=== PATIENT | female | born 1930 | race Caucasian/White ===

== ENCOUNTER 2018-05-12 10:50 | Emergency (ER) | payer MEDICARE, OTHER ==
[2018-05-12] MEDS ORDERED: METHYLPREDNISOLONE SOD SUCC 40MG/ML 1ML ONE (14:18)
[2018-05-12] MEDS ORDERED: KETOROLAC TROMETHAMINE 30MG/ML ONE (14:18)
== END 2018-05-12 14:40 | disposition home or self-care (01) ==
LOC: EDH 10:50
DX: S70.01XA Contusion of right hip, initial encounter (principal); Z96.649 Presence of unspecified artificial hip joint; Z87.891 Personal history of nicotine dependence; W18.39XA Other fall on same level, initial encounter; Y93.01 Activity, walking, marching and hiking; Y92.89 Other specified places as the place of occurrence of the external cause; Y99.8 Other external cause status
CPT/HCPCS: 73502; 96372 ×2; 99284; J1885; J2920

== ENCOUNTER → 2018-06-02 | Outpatient (CLI) | payer MEDICARE, OTHER | END | disposition home or self-care (01) | LOC: RAH 09:30 | PROVIDERS: ATTEND Family Medicine | DX: Z01.812 Encounter for preprocedural laboratory examination (principal); M16.11 Unilateral primary osteoarthritis, right hip | CPT/HCPCS: 71045 ==

== ENCOUNTER 2019-06-21 09:25 | Observation (INO) | payer MEDICARE, OTHER ==
[~2019-06-21] VITALS: Ht 171.4 cm; Wt 81.5 kg
[~2019-06-21 09:25] MED LIST: BENZ-17 PO; CEFD300C3 PO
[2019-06-21] MEDS ORDERED: NITROGLYCERIN 0.4 MG SL TAB SL ONE (09:57)
[2019-06-21 10:01] LABS: BASOPHILS % (AUTO) 0.6 % (0.0-5.0); EOSINOPHILS % (AUTO) 0.5 % (0.0-8.0); HEMATOCRIT 41.4 % (36-48); LYMPHOCYTES % (AUTO) 10.8 % (21.0-51.0); MEAN CORPUSCULAR HGB CONC 33.7 g/dL (32.0-36.0); MONOCYTES % (AUTO) 6.2 % (3.0-13.0); NEUTROPHILS % (AUTO) 81.9 % (40.0-77.0); NUCLEATED RED BLOOD CELLS 0.1 % (0.0-0.19); PLATELET COUNT (AUTO) 200 K/uL (130-400)
[2019-06-21] MEDS ORDERED: NITROGLYCERIN 1GM/1 INCH PACKET TD ONE (10:11)
[2019-06-21 10:12] LABS: CREATININE 0.9 mg/dL (0.5-1.5); POTASSIUM 4.1 mmol/L (3.5-5.1)
[2019-06-21 10:17] LABS: ALBUMIN 4.1 g/dL (3.5-5.0); BILIRUBIN,TOTAL 0.7 mg/dL (0.2-1.0); TOTAL PROTEIN, SERUM 7.2 g/dL (6.0-8.3)
[2019-06-21] MEDS ORDERED: ASPIRIN 325 MG TABLET ONE (11:06)
[2019-06-21] MEDS ORDERED: ACETAMINOPHEN 325 MG TAB PO PRN (12:00)
[2019-06-21] MEDS ORDERED: ONDANSETRON HCL 4 MG/2 ML VIAL IV PRN (12:00)
[2019-06-21] MEDS ORDERED: MORPHINE SULFATE 4 MG/1ML SYG IV PRN (12:00)
[2019-06-21] MEDS ORDERED: LACTULOSE 20 GM/30 ML UDCUP PO PRN (12:00)
[2019-06-21] MEDS ORDERED: ACETAMINOPHEN-CODEINE 300/30MG TAB PO PRN (12:00)
[2019-06-21] MEDS: METOPROLOL TARTRATE 25 MG TAB PO SCH ×2 (13:00→20:45)
--- NOTE | 2019-06-21 13:30 | NUR ---
ARRIVAL TO FLOOR PT IS AAOX3 DENIES CP DENIES SOB DENIES NV NO COMPLAINTS AT THIS TIME. ARRIVED WITH ORDERS, FRIENDS ARE AT BEDSIDE, TELE PACK APPLIED TO PATIENT. CALL LIGHT WITHIN REACH.
[2019-06-21 13:44] VITALS: BP 125/76
[2019-06-21] MEDS: NITROGLYCERIN 1GM/1 INCH PACKET TD SCH ×2 (14:05→22:35)
[2019-06-21 16:00] VITALS: BP 142/66
--- NOTE | 2019-06-21 17:30 | NUR ---
STATUS AAOX3 DENIES CP DENIES SOB DENIES NV RESTING IN BED. CALL LIGHT WITHIN REACH.
[2019-06-21 19:43] VITALS: BP 138/73
[2019-06-21] MEDS: FAMOTIDINE 20MG TAB 20 MG TAB PO SCH (20:45)
[2019-06-21] MEDS ORDERED: DIPHENHYDRAMINE HCL 25 MG CAPSULE PO SCH (21:30)
[2019-06-21 23:14] VITALS: BP 137/69
[2019-06-22 03:29] VITALS: BP 126/59
[2019-06-22 06:19] LABS: BASOPHILS % (AUTO) 0.6 % (0.0-5.0); EOSINOPHILS % (AUTO) 4.8 % (0.0-8.0); HEMATOCRIT 36.1 % (36-48); LYMPHOCYTES % (AUTO) 21.8 % (21.0-51.0); MEAN CORPUSCULAR HGB CONC 33.6 g/dL (32.0-36.0); MEAN CORPUSCULAR VOLUME 92.3 fL (79-99); MONOCYTES % (AUTO) 11.8 % (3.0-13.0); PLATELET COUNT (AUTO) 190 K/uL (130-400); RED BLOOD CELL COUNT(AUTO) 3.91 MIL/uL (4.00-5.50); RED CELL DISTRIBUTION WIDTH 13.9 % (11.0-15.5); WHITE BLOOD COUNT (AUTO) 5.4 K/uL (4.8-10.8)
[2019-06-22] MEDS: NITROGLYCERIN 1GM/1 INCH PACKET TD SCH (06:24)
[2019-06-22 06:49] LABS: CREATININE 0.8 mg/dL (0.5-1.5)
[2019-06-22 07:44] VITALS: BP 145/63
--- NOTE | 2019-06-22 07:45 | NUR ---
AM ASSESSMENT PT SITTING IN CHAIR, WATCHING TV. A/O X 3. NO SOB. NO DISTRESS NOTED. DENIES CHEST PAIN OR DISCOMFORT. DENIES PALPITATIONS. TELE: SR. DENIES N/V AND/ OR DIARRHEA. UP W/ASSISTANCE. JOSÉ @ BEDSIDE. INSTRUCTED TO CALL FOR ASSISTANCE. CALL ANGIE W/IN REACH.
[2019-06-22] MEDS: FAMOTIDINE 20MG TAB 20 MG TAB PO SCH (08:29)
[2019-06-22] MEDS: METOPROLOL TARTRATE 25 MG TAB PO SCH (08:29)
--- NOTE | 2019-06-22 08:30 | NUR ---
STATUS TELE TINO REMOVED @ THIS TIME. PT TO BE DISCHARGED HOME TODAY.
[2019-06-22] MEDS ORDERED: ENOXAPARIN SODIUM 40 MG/0.4 ML SYRINGE SQ SCH (09:00)
--- NOTE | 2019-06-22 09:50 | NUR ---
DISCHARGE VERBAL & WRITTEN DISCHARGE INSTRUCTIONS REVIEWED & GIVEN TO PT. QUESTIONS ENCOURAGED & CLARIFIED. PROPER CARE & MGT OF CHEST PAIN/PALPITATIONS REVIEWED. PT TO CONTINUE ASA @ HOME. PT TO F/U W/[facility]. IV DISCONTINUED. PT TO GATHER PERSONAL BELONGINGS. WILL NOTIFY STAFF WHEN FRIENDS ARRIVE TO HOSPITAL TO TAKE PT HOME.
--- NOTE | 2019-06-22 09:57 | NUR ---
CM NOTES ADVISED BY AT 0800 THAT PT IS GOING HOME- NO TRIGGERS TO CM, NO CONCERNS VOICED. DETAILED CM ASSESSMENT DEFERRED Addendum: 06/22/19 at 1004 by CHANDLER FAUST RN CM Amended: Links added.
--- NOTE | 2019-06-22 11:05 | NUR ---
DISCHARGE FRIENDS HERE TO TAKE PT HOME. PT TAKEN TO PRIVATE VEHICLE VIA WC BY Abby BUCKLEY PCP. NO DISTRESS NOTED.
== END 2019-06-22 11:05 | disposition home or self-care (01) ==
LOC: EDH 09:25 → EDHIP 11:53 → INTOOBSV 11:53 → 4DH 12:58
PROVIDERS: ADMIT Internal Medicine; ATTEND Internal Medicine
DX: M94.0 Chondrocostal junction syndrome [Tietze] (principal); K21.9 Gastro-esophageal reflux disease without esophagitis; I20.9 Angina pectoris, unspecified; R00.2 Palpitations; R55 Syncope and collapse; Z96.649 Presence of unspecified artificial hip joint; Z96.659 Presence of unspecified artificial knee joint
CPT/HCPCS: 36415 ×2; 71045; 80048; 80053; 82550; 83690; 84484 ×4; 85025 ×2; 93005 ×4; 93880; 99284; 99285; G0378 ×23; Q0163; J1650

== ENCOUNTER 2020-03-13 08:29 | Inpatient (IN) | payer MEDICARE, OTHER ==
[~2020-03-13] VITALS: Ht 170.2 cm; Wt 77.1 kg
[2020-03-13 09:16] LABS: BASOPHILS % (AUTO) 0.3 % (0.0-5.0); EOSINOPHILS % (AUTO) 1.1 % (0.0-8.0); HEMATOCRIT 34.7 % (36-48); LYMPHOCYTES % (AUTO) 10.7 % (21.0-51.0); MEAN CORPUSCULAR HEMOGLOBIN 30.5 pg (27.0-33.0); MEAN CORPUSCULAR HGB CONC 32.3 g/dL (32.0-36.0); MEAN CORPUSCULAR VOLUME 94.6 fL (79-99); NEUTROPHILS % (AUTO) 80.5 % (40.0-77.0); PLATELET COUNT (AUTO) 227 K/uL (130-400); RED BLOOD CELL COUNT(AUTO) 3.67 MIL/uL (4.00-5.50); RED CELL DISTRIBUTION WIDTH 13.8 % (11.0-15.5); WHITE BLOOD COUNT (AUTO) 9.6 K/uL (4.8-10.8)
[2020-03-13 09:29] LABS: INR 1.08 (0.85-1.15); PARTIAL THROMBOPLASTIN TIME 27.1 SEC (26.3-35.5); PROTHROMBIN TIME 11.6 SEC (9.6-11.6)
[2020-03-13 09:30] LABS: CREATININE 0.9 mg/dL (0.5-1.5); POTASSIUM 4.7 mmol/L (3.5-5.1)
[2020-03-13 09:35] LABS: ALBUMIN 3.5 g/dL (3.5-5.0); BILIRUBIN,TOTAL 0.4 mg/dL (0.2-1.0); TOTAL PROTEIN, SERUM 6.2 g/dL (6.0-8.3)
[2020-03-13 09:54] LABS: B-TYPE NATRIURETIC PEPTIDE 137 pg/mL (0-100)
[2020-03-13 10:10] LABS: APPEARANCE,URINE Cloudy (CLEAR); BILIRUBIN,URINE Negative (NEGATIVE); COLOR,URINE Yellow (YELLOW); GLUCOSE, URINE (UA) Negative (NEGATIVE); KETONES,URINE Negative (NEGATIVE); LEUKOCYTE ESTERASE ,URINE Moderate (NEGATIVE); NITRATE,URINE Negative (NEGATIVE); OCCULT BLOOD,URINE Negative (NEGATIVE); PH,URINE 5.5 (5.0-8.0); PROTEIN,URINE Negative (NEGATIVE); UROBILINOGEN,URINE 0.2 mg/dL (0.2-1.0)
[2020-03-13 10:16] LABS: BACTERIA,URINE Rare /HPF (None Seen); RBC,URINE 0-1 /HPF (0-1); SQUAMOUS EPITHELIAL CELL,UR Moderate /HPF (0-2)
[2020-03-13] MEDS ORDERED: ONDANSETRON HCL 4 MG/2 ML VIAL IV PRN (10:45)
[2020-03-13] MEDS ORDERED: HYDRALAZINE HCL 20 MG/ML VIAL IV PRN (10:45)
[2020-03-13] MEDS ORDERED: LACTULOSE 20 GM/30 ML UDCUP PO PRN (10:45)
[2020-03-13 11:33] LABS: HEMOGLOBIN A1C 5.5 % (4.0-6.0)
[2020-03-13 12:22] VITALS: BP 124/49
[2020-03-13 12:22] LABS: CHOLESTEROL 131 mg/dL (<200); HDL CHOLESTEROL 64 mg/dL (35-85); LDL DIRECT 51 mg/dL (0-99); TRIGLYCERIDES 57 mg/dL (30-200)
[2020-03-13] MEDS: ACETAMINOPHEN 325 MG TAB PO PRN (12:59)
[2020-03-13] MEDS: SODIUM CHLORIDE 0.9% 1000ML 1,000 ML IV SCH (14:04)
[2020-03-13] MEDS ORDERED: PANTOPRAZOLE SODIUM 40 MG TABLET.DR PO SCH (14:15)
[2020-03-13 20:04] VITALS: BP 97/47
[2020-03-13] MEDS: TEMAZEPAM 7.5 MG CAPSULE PO PRN (21:27)
[2020-03-14 00:04] VITALS: BP 109/56
[2020-03-14 04:02] LABS: BASOPHILS % (AUTO) 0.3 % (0.0-5.0); EOSINOPHILS % (AUTO) 3.1 % (0.0-8.0); HEMATOCRIT 23.7 % (36-48); LYMPHOCYTES % (AUTO) 23.7 % (21.0-51.0); MEAN CORPUSCULAR HEMOGLOBIN 31.1 pg (27.0-33.0); MEAN CORPUSCULAR HGB CONC 33.8 g/dL (32.0-36.0); MEAN CORPUSCULAR VOLUME 92.2 fL (79-99); MONOCYTES % (AUTO) 8.4 % (3.0-13.0); NEUTROPHILS % (AUTO) 64.2 % (40.0-77.0); PLATELET COUNT (AUTO) 152 K/uL (130-400); RED BLOOD CELL COUNT(AUTO) 2.57 MIL/uL (4.00-5.50); RED CELL DISTRIBUTION WIDTH 14.2 % (11.0-15.5)
[2020-03-14 04:04] VITALS: BP_SYST 102; BP_SYST 123; BP_SYST 95; BP_DIAS 51; BP_DIAS 54; BP_DIAS 61
[2020-03-14 04:16] LABS: CREATININE 0.9 mg/dL (0.5-1.5); POTASSIUM 3.9 mmol/L (3.5-5.1)
[2020-03-14] MEDS: SODIUM CHLORIDE 0.9% 1000ML 1,000 ML IV SCH (04:39)
--- NOTE | 2020-03-14 06:44 | NUR ---
NOTE SPIRITUAL ADVISOR ASKED TO MOVE PATIENT TO ROOM 320, INFORMED PATIENT OF PLAN. LATIA VILLELA NP MAKING ROUNDS A THIS TIME. NOTIFIED OF MOVE AND HE SPOKE WITH PATIENT AND INFORMED HER OF PLAN TO CONSULT CARDIOLOGY. MOVED HER VIA WHEELCHAIR ALONG WITH HER BELONGINGS. ORIENTED HER TO HER NEW ROOM. CONTACTED HAND PATCHER TECH AND ALSO PATIENT'S DAUGHTER AND PROVIDED HER WITH NEW TELEPHONE NUMBER TO CALL PATIENT IN NEW ROOM AND NEW ORDERS OF CARDIOLOGY. ASKED HER IF PATIENT ALREADY SEES A CARDIOLOGIES, SHE SAYS THAT SHE DOES NOT.
[2020-03-14 07:30] VITALS: BP 121/55
[2020-03-14] MEDS ORDERED: PANTOPRAZOLE SODIUM 40 MG TABLET.DR PO SCH (09:00)
[2020-03-14] MEDS ORDERED: FAMOTIDINE 20MG TAB 20 MG TAB PO SCH (09:00)
[2020-03-14] MEDS ORDERED: ENOXAPARIN SODIUM 40 MG/0.4 ML SYRINGE SQ SCH ×2 (09:00)
[2020-03-14 11:00] VITALS: BP 120/52
[2020-03-14] MEDS: ACETAMINOPHEN 325 MG TAB PO PRN (12:40)
--- NOTE | 2020-03-14 13:57 | NUR ---
INP CM spoke to pt's daughter Awilda Thompson, discussed dc plans. Per daughter pt is independent prior to admission, live at home alone, daughter lives close by, daughter verbalized she is not the POA instead it's the son from [place] for any signatures needed. Pt has a cane, shower chair, uses [facility] in [place] for meds. Per daughter it's ok to call her for updates as she talks to brother if there's any changes in pt condition, but son will be the one to call in case nurse needs signatures. Feels safe to go back home, daughter able to assist with transportation and needs as necessary. DC plan to home once stable. CM to cont to follow up. Addendum: 03/14/20 at 1401 by REJI BUTLER LVN CM Amended: Links added.
[2020-03-14 16:00] VITALS: BP 159/77
[2020-03-14] MEDS ORDERED: PANTOPRAZOLE SODIUM 80 MG in SODIUM CHLORIDE 0.9% 100 ML IV SCH (16:30)
[2020-03-14 17:52] LABS: HEMATOCRIT 23.5 % (36-48)
[2020-03-14 18:18] LABS: % IRON SATURATION 13.6 % (22-44)
[2020-03-14] MEDS: TEMAZEPAM 7.5 MG CAPSULE PO PRN (20:14)
[2020-03-14 23:18] LABS: HEMATOCRIT 23.2 % (36-48)
[2020-03-15] VITALS (19 sets, daily range): BP systolic 87–152; BP diastolic 32–69
[2020-03-15] MEDS: SODIUM CHLORIDE 0.9% 1000ML 1,000 ML IV SCH ×2 (02:48→11:27)
[2020-03-15 04:37] LABS: BASOPHILS % (AUTO) 0.7 % (0.0-5.0); EOSINOPHILS % (AUTO) 2.7 % (0.0-8.0); HEMATOCRIT 21.4 % (36-48); LYMPHOCYTES % (AUTO) 19.4 % (21.0-51.0); MEAN CORPUSCULAR HEMOGLOBIN 31.2 pg (27.0-33.0); MEAN CORPUSCULAR HGB CONC 33.6 g/dL (32.0-36.0); MEAN CORPUSCULAR VOLUME 92.6 fL (79-99); MONOCYTES % (AUTO) 8.6 % (3.0-13.0); NEUTROPHILS % (AUTO) 68.1 % (40.0-77.0); PLATELET COUNT (AUTO) 167 K/uL (130-400); RED BLOOD CELL COUNT(AUTO) 2.31 MIL/uL (4.00-5.50); RED CELL DISTRIBUTION WIDTH 14.1 % (11.0-15.5); WHITE BLOOD COUNT (AUTO) 5.8 K/uL (4.8-10.8)
[2020-03-15 04:47] LABS: CREATININE 0.7 mg/dL (0.5-1.5); POTASSIUM 3.5 mmol/L (3.5-5.1)
[2020-03-15] MEDS ORDERED: PROPOFOL 10 MG/ML 20ML VIAL IV ONE (10:21)
[2020-03-15] MEDS ORDERED: PHENYLEPHRINE HCL 10 MG/ML 1ML VIAL IV ONE (10:32)
[2020-03-15] MEDS ORDERED: ALPRAZOLAM 0.25 MG TABLET ONE (13:04)
[2020-03-15] MEDS ORDERED: ALPRAZOLAM 0.25 MG TABLET PO ONE (14:00)
--- NOTE | 2020-03-15 15:33 | NUR ---
1524 patient signed IM Letter, I faxed IM Letter to [phone] and placed in chart under consent tab.
[2020-03-15] MEDS ORDERED: IOHEXOL 350 MG/ML 100ML INFUS..BTL IV ONE (17:47)
[2020-03-15] MEDS: TEMAZEPAM 7.5 MG CAPSULE PO PRN (20:13)
[2020-03-15] MEDS: ACETAMINOPHEN 325 MG TAB PO PRN (20:15)
--- NOTE | 2020-03-15 21:37 | NUR ---
received report from andrea aguilar nurse, assumed care, pt h&h 7.2, waiting for doctors order, will continue to monitor. head to toe assessment done, safety maintained. 24 cc done, will contue to monitor and provide quality nursing care.
--- NOTE | 2020-03-15 22:03 | NUR ---
contacted and spoke with contreras pump house technician, informed ms chairez pt h&h and also contacted rodrigue charge nurse also informed her pt situation. contacted and spoke with hospitalist lead python developer, spoke with Oj Sousa, informed her pt H&h, per andrea aguilar nurse had morning rounds and no new orders given just continue to monitor. Tania Sousa Track Service Worker, asked pt vs , pt vs wnl, asymptomatic, resting comfortably in bed, no active bleeding noted, pt did ct of head came back negative, doppler came back negative, Tania Sousa Np checked on ordered labs in the morning and ordered just to continue to monitor. torb and confirmed.
--- NOTE | 2020-03-15 23:04 | NUR ---
called, ff up with ct, given result ct (-), continue to monitor.
[2020-03-16] VITALS (7 sets, daily range): BP systolic 114–145; BP diastolic 41–67
[2020-03-16] MEDS: ACETAMINOPHEN 325 MG TAB PO PRN ×4 (02:37→21:20)
[2020-03-16] MEDS: SODIUM CHLORIDE 0.9% 1000ML 1,000 ML IV SCH ×2 (02:51→18:48)
[2020-03-16 05:55] LABS: BASOPHILS % (AUTO) 0.5 % (0.0-5.0); EOSINOPHILS % (AUTO) 2.6 % (0.0-8.0); HEMATOCRIT 21.4 % (36-48); LYMPHOCYTES % (AUTO) 20.7 % (21.0-51.0); MEAN CORPUSCULAR HEMOGLOBIN 30.7 pg (27.0-33.0); MEAN CORPUSCULAR HGB CONC 33.2 g/dL (32.0-36.0); MEAN CORPUSCULAR VOLUME 92.6 fL (79-99); MONOCYTES % (AUTO) 8.8 % (3.0-13.0); NEUTROPHILS % (AUTO) 66.9 % (40.0-77.0); PLATELET COUNT (AUTO) 179 K/uL (130-400); RED BLOOD CELL COUNT(AUTO) 2.31 MIL/uL (4.00-5.50); RED CELL DISTRIBUTION WIDTH 14.1 % (11.0-15.5); WHITE BLOOD COUNT (AUTO) 5.8 K/uL (4.8-10.8)
--- NOTE | 2020-03-16 06:12 | NUR ---
received report from andrea aguilar nurse, assumed care, shift assessment done, timed medication given see emar, pain medication given, pre and post pain assessment done, safety maintained.
[2020-03-16 06:14] LABS: CREATININE 0.7 mg/dL (0.5-1.5); POTASSIUM 3.5 mmol/L (3.5-5.1)
[2020-03-16] MEDS ORDERED: EPOETIN ALFA 10,000 UNIT/ML VIAL SQ SCH (11:00)
[2020-03-16] MEDS ORDERED: COMPOUND IV MISC 1 EACH IVSOLN MISC PRN (11:00)
[2020-03-16] MEDS: IRON SUCROSE COMPLEX 100 MG in SODIUM CHLORIDE 0.9% 50 ML IV SCH ×2 (14:00→21:10)
--- NOTE | 2020-03-16 19:29 | NUR ---
Pt discharged from GI; new orders entered. Contacted Hospitalist Nadia in regards to consulting with Dr. Ren for carotid stenosis results and Nadia stated she would contact Dr. Ren. This information was passed on in report.
[2020-03-16] MEDS: PANTOPRAZOLE SODIUM 40 MG TABLET.DR PO SCH (21:10)
[2020-03-16] MEDS: TEMAZEPAM 7.5 MG CAPSULE PO PRN (21:19)
[2020-03-17 03:36] VITALS: BP 121/55
[2020-03-17 04:30] LABS: BASOPHILS % (AUTO) 0.5 % (0.0-5.0); EOSINOPHILS % (AUTO) 3.1 % (0.0-8.0); HEMATOCRIT 21.7 % (36-48); LYMPHOCYTES % (AUTO) 18.7 % (21.0-51.0); MEAN CORPUSCULAR HEMOGLOBIN 30.7 pg (27.0-33.0); MEAN CORPUSCULAR HGB CONC 32.7 g/dL (32.0-36.0); MEAN CORPUSCULAR VOLUME 93.9 fL (79-99); MONOCYTES % (AUTO) 9.9 % (3.0-13.0); NEUTROPHILS % (AUTO) 67.3 % (40.0-77.0); PLATELET COUNT (AUTO) 189 K/uL (130-400); RED BLOOD CELL COUNT(AUTO) 2.31 MIL/uL (4.00-5.50); RED CELL DISTRIBUTION WIDTH 14.3 % (11.0-15.5); WHITE BLOOD COUNT (AUTO) 6.4 K/uL (4.8-10.8)
[2020-03-17 04:59] LABS: CREATININE 0.7 mg/dL (0.5-1.5); POTASSIUM 3.6 mmol/L (3.5-5.1)
--- NOTE | 2020-03-17 07:38 | NUR ---
Patient was found in the room by OctoberA she was very hard to arouse. Patient not talking but able open eyes and nod. BS was checked which was 104. Blood pressure of 120/88 hr 72 Oxygen level of 97% on room air. Rapid response was called at 07 and then stroke code was called at 0708. Patient was taken to get CT of the head/brain wo contrast. Patient is back in room pending Telemed. Report was given to oncoming WADE Abbasi.
[2020-03-17] MEDS ORDERED: METOPROLOL TARTRATE 25 MG TAB ONE (07:57)
[2020-03-17] MEDS ORDERED: NITROGLYCERIN 1GM/1 INCH PACKET TD ONE (07:57)
[2020-03-17] MEDS ORDERED: MORPHINE SULFATE 2 MG/ML 1ML SYG ONE (07:57)
[2020-03-17 08:00] VITALS: BP 170/71
[2020-03-17] MEDS ORDERED: NITROGLYCERIN 1GM/1 INCH PACKET TD SCH (08:00)
[2020-03-17] MEDS ORDERED: METOPROLOL TARTRATE 25 MG TAB PO SCH (08:00)
[2020-03-17] MEDS ORDERED: MORPHINE SULFATE 2 MG/ML 1ML SYG IVP SCH (08:00)
[2020-03-17] MEDS ORDERED: LEVETIRACETAM 500 MG in SODIUM CHLORIDE 0.9% 100 ML IV SCH (08:15)
[2020-03-17] MEDS ORDERED: EPOETIN ALFA 10,000 UNIT/ML VIAL SQ SCH (08:30)
[2020-03-17 08:31] LABS: CREATINE KINASE, TOTAL 62 U/L (21-232); MYOGLOBIN 51 ng/mL (10-92); TROPONIN I < 0.04 ng/mL (0.00-0.06)
--- NOTE | 2020-03-17 08:47 | NUR ---
Per Dr. Ren, to disregard Physical Therapy order until further notice. Addendum: 03/17/20 at 0848 by WINDY EISENBERG, PT PT Amended: Links added.
[2020-03-17] MEDS: PANTOPRAZOLE SODIUM 40 MG TABLET.DR PO SCH ×2 (09:00→22:03)
[2020-03-17] MEDS: IRON SUCROSE COMPLEX 100 MG in SODIUM CHLORIDE 0.9% 50 ML IV SCH (09:00)
--- NOTE | 2020-03-17 09:30 | NUR ---
DYSPHAGIA EVAL COMPLETED. -S/S OF ASPIRATION. RECOMMEND REGULAR TEXTURE, THIN LIQUIDS; PILLS WHOLE WITH LIQUIDS. Addendum: 03/17/20 at 1338 by ABDIRASHID CONCEPCION, [facility] Amended: Links added.
[2020-03-17] MEDS ORDERED: IOHEXOL-350 75 ML VIAL IV ONE (09:36)
--- NOTE | 2020-03-17 10:00 | NUR ---
COGNITIVE EVAL COMPLETE. COGNITIVE-LINGUISTIC ABILITIES WITHIN FUNCTIONAL LIMITS. EVALUATION: Pt AAOX3. Pt REQUESTS WANTS AND NEEDS INDEPENDENTLY. Pt INTELLIGIBLE AT 100% ACCURACY TO THE UNFAMILIAR LISTENER. Pt COMMUNICATING AT CONVERSATIONAL LEVEL WITH NO DEFICITS IDENTIFIED AT THIS TIME. Pt COMPLETED COGNITIVE-LINGUISTIC EVALUATION TARGETING: ORIENTATION, ATTENTION/CONCENTRATION, MEMORY (IMMEDIATE, SHORT-TERM AND LONG-TERM), PROBLEM SOLVING, LOGIC/REASONING/INFERENCE, THOUGHT ORGANIZATION, FUNCTIONAL MATH AND TELLING TIME. Pt ABLE TO COMPLETE TASKS WITH CORRECT AND TIMELY ANSWERS TO ALL SECTIONS. G-CODES SPOKEN LANGUAGE EXPRESSION: [id number] Addendum: 03/17/20 at 1343 by ABDIRASHID CONCEPCION [facility] Amended: Links added.
[2020-03-17] MEDS: SODIUM CHLORIDE 0.9% 1000ML 1,000 ML IV SCH ×2 (11:03→22:03)
[2020-03-17] MEDS: LEVETIRACETAM 500 MG in SODIUM CHLORIDE 0.9% 100 ML IV SCH ×2 (11:45→23:45)
[2020-03-17 12:00] VITALS: BP 124/47
[2020-03-17 16:00] VITALS: BP 92/49
[2020-03-17 20:00] VITALS: BP 136/43
[2020-03-17] MEDS: TEMAZEPAM 7.5 MG CAPSULE PO PRN (23:55)
[2020-03-18] VITALS: BP 128/64
[2020-03-18 04:00] VITALS: BP 140/62
[2020-03-18 05:10] LABS: BASOPHILS % (AUTO) 0.5 % (0.0-5.0); EOSINOPHILS % (AUTO) 2.9 % (0.0-8.0); HEMATOCRIT 25.1 % (36-48); LYMPHOCYTES % (AUTO) 17.8 % (21.0-51.0); MEAN CORPUSCULAR HEMOGLOBIN 31.1 pg (27.0-33.0); MEAN CORPUSCULAR HGB CONC 33.5 g/dL (32.0-36.0); MONOCYTES % (AUTO) 10.1 % (3.0-13.0); NEUTROPHILS % (AUTO) 68.2 % (40.0-77.0); PLATELET COUNT (AUTO) 204 K/uL (130-400); RED CELL DISTRIBUTION WIDTH 14.2 % (11.0-15.5); WHITE BLOOD COUNT (AUTO) 8.2 K/uL (4.8-10.8)
[2020-03-18 05:26] LABS: CREATININE 0.8 mg/dL (0.5-1.5); POTASSIUM 3.5 mmol/L (3.5-5.1)
[2020-03-18 07:30] VITALS: BP 140/59
[2020-03-18] MEDS: IRON SUCROSE COMPLEX 100 MG in SODIUM CHLORIDE 0.9% 50 ML IV SCH (09:17)
[2020-03-18] MEDS: PANTOPRAZOLE SODIUM 40 MG TABLET.DR PO SCH (09:17)
[2020-03-18 11:00] VITALS: BP 147/74
--- NOTE | 2020-03-18 12:55 | NUR ---
FOLLOW UP COMPLETED. Pt TOLERATING REGULAR TEXTURE, THIN LIQUID DIET WITH NO OVERT S/S OF ASPIRATION. RECOMMEND CONTINUED P.O. SKILLED SPEECH THERAPY IS NOT RECOMMENDED AT THIS TIME. Addendum: 03/18/20 at 1257 by ABDIRASHID CONCEPCION, [facility] Amended: Links added.
[2020-03-18] MEDS ORDERED: PANT40TA55 PO (17:12)
[2020-03-18] MEDS ORDERED: LEVE-43 PO (17:12)
== END 2020-03-18 17:15 | disposition home or self-care (01) | DRG 67 ==
LOC: EDH 08:29 → 3AH 10:43 → OBSVTOIN 10:43 → 3CH 03-14 06:54
PROVIDERS: ADMIT Internal Medicine; ATTEND Internal Medicine
PROC: 0DB98ZX Excision of Duodenum, Via Natural or Artificial Opening Endoscopic, Diagnostic (ICD-10-PCS; principal; 2020-03-15)
PROC: 0DB68ZX Excision of Stomach, Via Natural or Artificial Opening Endoscopic, Diagnostic (ICD-10-PCS; 2020-03-15)
PROC: 30233N1 Transfusion of Nonautologous Red Blood Cells into Peripheral Vein, Percutaneous Approach (ICD-10-PCS; 2020-03-17)
PROC: 4A10X4Z Monitoring of Central Nervous Electrical Activity, External Approach (ICD-10-PCS; 2020-03-18)
DX: I65.22 Occlusion and stenosis of left carotid artery (principal); K25.4 Chronic or unspecified gastric ulcer with hemorrhage; E11.9 Type 2 diabetes mellitus without complications; D64.9 Anemia, unspecified; N95.1 Menopausal and female climacteric states; Z96.643 Presence of artificial hip joint, bilateral; I25.10 Atherosclerotic heart disease of native coronary artery without angina pectoris; Z20.828 Contact with and (suspected) exposure to other viral communicable diseases; K44.9 Diaphragmatic hernia without obstruction or gangrene; R79.89 Other specified abnormal findings of blood chemistry; K31.89 Other diseases of stomach and duodenum; I95.9 Hypotension, unspecified; Z96.653 Presence of artificial knee joint, bilateral; Z79.899 Other long term (current) drug therapy
CPT/HCPCS: 36415; 36430; 43239; 70450; 70496; 70498; 70551; 71045; 80048; 80053; 80061; 81001; 82270; 82550; 82728; 82948; 83036; 83540; 83550; 83605; 83690; 83874; 83880; 84443; 84484; 85014; 85018; 85025; 85378; 85610; 85730; 86850; 86900; 86901; 86922; 86923; 87088; 87426; 87804; 88305; 88342; 92522; 92610; 93005; 93306; 93356; 93880; 93970; 95816; C9113; G0378; J0885; J1650; J1756; J1953; J2370; J2704; J7030; P9016; Q9967; U0003

== ENCOUNTER 2020-10-03 10:06 | Emergency (ER) | payer MEDICARE, OTHER ==
[~2020-10-03 10:06] MED LIST changes: -BENZ-17 PO; -CEFD300C3 PO; +LEVE-43 PO; +PANT40TA55 PO
[2020-10-03] MEDS ORDERED: SODIUM CHLORIDE 0.9% 1000ML 1,000 ML IV ONE (10:07)
[2020-10-03 11:11] LABS: BASOPHILS % (AUTO) 0.4 % (0.0-5.0); EOSINOPHILS % (AUTO) 0.7 % (0.0-8.0); HEMATOCRIT 47.2 % (36-48); LYMPHOCYTES % (AUTO) 10.6 % (21.0-51.0); MEAN CORPUSCULAR HEMOGLOBIN 29.2 pg (27.0-33.0); MEAN CORPUSCULAR HGB CONC 32.2 g/dL (32.0-36.0); MEAN CORPUSCULAR VOLUME 90.8 fL (79-99); MONOCYTES % (AUTO) 10.1 % (3.0-13.0); NEUTROPHILS % (AUTO) 77.7 % (40.0-77.0); PLATELET COUNT (AUTO) 257 K/uL (130-400); RED CELL DISTRIBUTION WIDTH 15.2 % (11.0-15.5); WHITE BLOOD COUNT (AUTO) 8.1 K/uL (4.8-10.8)
[2020-10-03] MEDS ORDERED: LABETALOL 20 MG/4 ML DISP.SYRIN IV ONE (11:19)
[2020-10-03 11:20] LABS: CREATININE 0.8 mg/dL (0.5-1.5); POTASSIUM 4.2 mmol/L (3.5-5.1)
[2020-10-03 11:21] LABS: ALBUMIN 4.1 g/dL (3.5-5.0); BILIRUBIN,TOTAL 1.1 mg/dL (0.2-1.0); TOTAL PROTEIN, SERUM 8.1 g/dL (6.0-8.3)
[2020-10-03] MEDS ORDERED: CEFTRIAXONE SODIUM 1 GM ONE (11:29)
[2020-10-03 11:31] LABS: APPEARANCE,URINE Clear (CLEAR); BILIRUBIN,URINE Negative (NEGATIVE); COLOR,URINE Yellow (YELLOW); GLUCOSE, URINE (UA) Negative (NEGATIVE); KETONES,URINE Negative (NEGATIVE); LEUKOCYTE ESTERASE ,URINE Negative (NEGATIVE); NITRATE,URINE Negative (NEGATIVE); OCCULT BLOOD,URINE Negative (NEGATIVE); PH,URINE 5.5 (5.0-8.0); PROTEIN,URINE Negative (NEGATIVE)
[2020-10-03 11:51] LABS: INR 1.15 (0.85-1.15); PROTHROMBIN TIME 12.4 SEC (9.6-11.6)
[2020-10-03 11:52] LABS: PARTIAL THROMBOPLASTIN TIME 34.5 SEC (26.3-35.5)
== END 2020-10-03 13:15 | disposition home or self-care (01) ==
LOC: EDH 10:06
DX: L03.114 Cellulitis of left upper limb (principal); R00.2 Palpitations; R07.89 Other chest pain; I10 Essential (primary) hypertension; I48.91 Unspecified atrial fibrillation
CPT/HCPCS: 36415; 71045; 80053; 81003; 82550; 84484; 85025; 85610; 85730; 93005; 93971; 96365; 96366; 96375; 99285; J0696; J7030

== ENCOUNTER 2020-12-12 14:25 | Observation (INO) | payer MEDICARE, OTHER ==
[~2020-12-12] VITALS: Ht 170.2 cm; Wt 72.9 kg
[~2020-12-12 14:25] MED LIST changes: +ALPR1TAB7 PO; +APIX5TAB PO; -LEVE-43 PO; +METO-391 PO; -PANT40TA55 PO
[2020-12-12] MEDS ORDERED: NITROGLYCERIN 1GM/1 INCH PACKET TD ONE (14:46)
[2020-12-12 15:26] LABS: BASOPHILS % (AUTO) 0.2 % (0.0-5.0); EOSINOPHILS % (AUTO) 0.8 % (0.0-8.0); HEMATOCRIT 32.1 % (36-48); LYMPHOCYTES % (AUTO) 9.3 % (21.0-51.0); MEAN CORPUSCULAR HEMOGLOBIN 30.9 pg (27.0-33.0); MEAN CORPUSCULAR HGB CONC 33.6 g/dL (32.0-36.0); MEAN CORPUSCULAR VOLUME 91.7 fL (79-99); MONOCYTES % (AUTO) 11.3 % (3.0-13.0); NEUTROPHILS % (AUTO) 77.8 % (40.0-77.0); PLATELET COUNT (AUTO) 291 K/uL (130-400); RED CELL DISTRIBUTION WIDTH 15.7 % (11.0-15.5); WHITE BLOOD COUNT (AUTO) 12.1 K/uL (4.8-10.8)
[2020-12-12 15:35] LABS: CREATININE 0.8 mg/dL (0.5-1.5); POTASSIUM 3.7 mmol/L (3.5-5.1)
[2020-12-12 15:36] LABS: INR 1.24 (0.85-1.15); PROTHROMBIN TIME 13.3 SEC (9.6-11.6)
[2020-12-12 15:38] LABS: PARTIAL THROMBOPLASTIN TIME 30.8 SEC (26.3-35.5)
[2020-12-12 15:48] LABS: ALBUMIN 3.2 g/dL (3.5-5.0); BILIRUBIN,TOTAL 1.7 mg/dL (0.2-1.0); TOTAL PROTEIN, SERUM 6.2 g/dL (6.0-8.3)
[2020-12-12] MEDS ORDERED: SODIUM CHLORIDE 0.9% 1000ML 1,000 ML IV SCH (17:30)
[2020-12-12] MEDS ORDERED: ONDANSETRON HCL 4 MG/2 ML VIAL IV PRN (17:45)
[2020-12-12] MEDS: CEFTRIAXONE SODIUM 1 GM IV SCH (17:45)
[2020-12-12] MEDS ORDERED: MAG HYDROX/AL HYDROX/SIMETH ES 30 ML SUSP UDCUP PO PRN (17:45)
[2020-12-12] MEDS ORDERED: LACTULOSE 20 GM/30 ML UDCUP PO PRN (17:45)
[2020-12-12] MEDS ORDERED: GUAIFENESIN-DM 200/20 MG 10 ML PO PRN (17:45)
[2020-12-12] MEDS ORDERED: DiphenhydrAMINE HCL 50 MG/ML VIAL IV PRN (17:45)
[2020-12-12] MEDS ORDERED: DIPHENHYDRAMINE HCL 25 MG CAPSULE PO PRN (17:45)
[2020-12-12] MEDS ORDERED: ACETAMINOPHEN 325 MG TAB PO PRN (17:45)
[2020-12-12] MEDS ORDERED: NITROGLYCERIN 0.4 MG SL TAB SL PRN (17:45)
[2020-12-12] MEDS ORDERED: SODIUM CHLORIDE 0.9% 1000ML 1,000 ML IV ONE (18:11)
[2020-12-12 19:36] VITALS: BP 148/87
[2020-12-12 20:40] LABS: CREATINE KINASE, TOTAL 212 U/L (21-232); MYOGLOBIN 92 ng/mL (10-92); TROPONIN I < 0.04 ng/mL (0.00-0.06)
[2020-12-12] MEDS: METOPROLOL TARTRATE 25 MG TAB PO SCH (21:10)
[2020-12-12] MEDS: FUROSEMIDE 20MG VIAL (10MG/ML) IV SCH (21:10)
[2020-12-13] VITALS (7 sets, daily range): BP systolic 121–181; BP diastolic 64–97
[2020-12-13 02:28] LABS: BASOPHILS % (AUTO) 0.4 % (0.0-5.0); EOSINOPHILS % (AUTO) 0.8 % (0.0-8.0); HEMATOCRIT 29.9 % (36-48); LYMPHOCYTES % (AUTO) 10.7 % (21.0-51.0); MEAN CORPUSCULAR HEMOGLOBIN 31.8 pg (27.0-33.0); MEAN CORPUSCULAR HGB CONC 34.4 g/dL (32.0-36.0); MEAN CORPUSCULAR VOLUME 92.3 fL (79-99); MONOCYTES % (AUTO) 11.2 % (3.0-13.0); NEUTROPHILS % (AUTO) 76.5 % (40.0-77.0); PLATELET COUNT (AUTO) 271 K/uL (130-400); RED BLOOD CELL COUNT(AUTO) 3.24 MIL/uL (4.00-5.50); RED CELL DISTRIBUTION WIDTH 15.7 % (11.0-15.5); WHITE BLOOD COUNT (AUTO) 11.7 K/uL (4.8-10.8)
[2020-12-13 03:04] LABS: ALANINE AMINOTRANSFERASE 51 U/L (12-78); ASPARTATE AMINOTRANSFERASE 37 U/L (10-37); BILIRUBIN,TOTAL 1.5 mg/dL (0.2-1.0); CARBON DIOXIDE 33 mmol/L (21-32); CHLORIDE 93 mmol/L (101-111); CREATINE KINASE, TOTAL 112 U/L (21-232); CREATININE 0.9 mg/dL (0.5-1.5); GLOMERULAR FILTR. RATE CALC 63 mL/min (>60); GLUCOSE,RANDOM 117 mg/dL (70-105); MYOGLOBIN 148 ng/mL (10-92); PHOSPHORUS 3.4 mg/dL (2.5-4.9); SODIUM SERUM 128 mmol/L (136-145); TOTAL PROTEIN, SERUM 5.8 g/dL (6.0-8.3); TROPONIN I < 0.04 ng/mL (0.00-0.06); UREA NITROGEN, BLOOD 13 mg/dL (7-18)
[2020-12-13] MEDS: MAGNESIUM 2GM PREMIX 50ML 50 ML IV PRN (05:45)
[2020-12-13] MEDS: FUROSEMIDE 20MG VIAL (10MG/ML) IV SCH (06:45)
[2020-12-13] MEDS ORDERED: CEPH500B PO (07:09)
[2020-12-13] MEDS ORDERED: NEOM1OIN19 TP (07:09)
[2020-12-13] MEDS ORDERED: ACET1TAB25 PO (07:09)
[2020-12-13 08:24] LABS: APPEARANCE,URINE Clear (CLEAR); BILIRUBIN,URINE Negative (NEGATIVE); COLOR,URINE Yellow (YELLOW); GLUCOSE, URINE (UA) Negative (NEGATIVE); KETONES,URINE Negative (NEGATIVE); LEUKOCYTE ESTERASE ,URINE Trace (NEGATIVE); NITRATE,URINE Negative (NEGATIVE); OCCULT BLOOD,URINE Negative (NEGATIVE); PROTEIN,URINE Negative (NEGATIVE)
[2020-12-13] MEDS: METOPROLOL TARTRATE 25 MG TAB PO SCH (08:32)
[2020-12-13 08:54] LABS: BACTERIA,URINE Rare /HPF (None Seen); RBC,URINE 0-1 /HPF (0-1); SQUAMOUS EPITHELIAL CELL,UR Few /HPF (0-2); WBC,URINE 0-1 /HPF (0-1); YEAST,URINE BUDDING Moderate /HPF (None Seen)
[2020-12-13] MEDS ORDERED: ASPIRIN 325 MG TABLET PO SCH (09:00)
[2020-12-13] MEDS ORDERED: METOPROLOL TARTRATE 1 MG/ML 5ML VIAL IV PRN (10:30)
[2020-12-13] MEDS ORDERED: METOPROLOL TARTRATE 25 MG TAB ONE (10:50)
[2020-12-13] MEDS: ACETAMINOPHEN 325 MG TAB PO PRN ×2 (13:20→20:59)
[2020-12-13] MEDS: CEFTRIAXONE SODIUM 1 GM IV SCH (17:00)
[2020-12-13] MEDS: APIXABAN 5 MG TABLET PO SCH (19:51)
[2020-12-13] MEDS: METOPROLOL TARTRATE 50 MG TAB PO SCH (19:55)
[2020-12-14 03:54] VITALS: BP 137/83
[2020-12-14 04:35] LABS: HEMATOCRIT 28.1 % (36-48); MEAN CORPUSCULAR HEMOGLOBIN 31.3 pg (27.0-33.0); MEAN CORPUSCULAR HGB CONC 34.5 g/dL (32.0-36.0); MEAN CORPUSCULAR VOLUME 90.6 fL (79-99); PLATELET COUNT (AUTO) 287 K/uL (130-400); RED CELL DISTRIBUTION WIDTH 15.3 % (11.0-15.5); WHITE BLOOD COUNT (AUTO) 10.5 K/uL (4.8-10.8)
[2020-12-14 05:09] LABS: ALBUMIN 3.1 g/dL (3.5-5.0); BILIRUBIN,TOTAL 2.2 mg/dL (0.2-1.0); CREATININE 0.7 mg/dL (0.5-1.5); MAGNESIUM 1.7 mg/dL (1.80-2.40); THYROID STIMULATING HORMONE 4.6 uIU/mL (0.36-3.74); TOTAL PROTEIN, SERUM 5.9 g/dL (6.0-8.3)
[2020-12-14 05:18] LABS: BAND NEUTROPHILS % (MANUAL) 2 % (0-2); BASOPHILS % (MANUAL) 1 % (0-2); LYMPHOCYTES % (MANUAL) 9 % (22-44); MAN.DIFF COMMENT-IMPRESSION MANUAL DIFFERENTIAL; MONOCYTES % (MANUAL) 7 % (2-9); PLATELET MORPHOLOGY COMMENT ADEQUATE; SEGMENTED NEUTROPHILS % 81 % (40-70)
[2020-12-14] MEDS: MAGNESIUM 2GM PREMIX 50ML 50 ML IV PRN (05:25)
[2020-12-14] MEDS ORDERED: POTASSIUM CHLORIDE 10MEQ/100ML 100 ML IV PRN (05:45)
[2020-12-14] MEDS ORDERED: POTASSIUM CHLORIDE 10% ELIXIR 20 MEQ/15 ML UDCUP PO PRN (05:45)
[2020-12-14] MEDS ORDERED: LIDOCAINE HCL-MPF 1% 2ML VIAL IV PRN (05:45)
[2020-12-14] MEDS ORDERED: KCL 20 MEQ ERTAB PO PRN (05:45)
[2020-12-14 07:00] VITALS: BP 143/74
[2020-12-14] MEDS ORDERED: ASPIRIN 81MG TAB.CHEW PO SCH (09:00)
[2020-12-14] MEDS: METOPROLOL TARTRATE 50 MG TAB PO SCH (09:12)
[2020-12-14] MEDS: APIXABAN 5 MG TABLET PO SCH (09:12)
[2020-12-14 11:00] VITALS: BP 136/86
[2020-12-14] MEDS ORDERED: CALCIUM CARBON 500MG CHEW TAB ONE (13:10)
[2020-12-14 15:44] LABS: CREATININE 0.8 mg/dL (0.5-1.5); MAGNESIUM 2.1 mg/dL (1.80-2.40); POTASSIUM 3.6 mmol/L (3.5-5.1); URIC ACID 3.6 mg/dL (2.6-7.2)
[2020-12-14 16:00] VITALS: BP 130/85
== END 2020-12-14 19:45 ==
LOC: EDH 14:25 → EDHIP 17:36 → 2DH 20:36 → 4DH 12-13 22:19
PROVIDERS: ADMIT Family Medicine; ATTEND Family Medicine
DX: R07.89 Other chest pain (principal); E83.42 Hypomagnesemia; E87.1 Hypo-osmolality and hyponatremia; R06.02 Shortness of breath; I48.0 Paroxysmal atrial fibrillation; E04.1 Nontoxic single thyroid nodule; N28.1 Cyst of kidney, acquired; E86.0 Dehydration; I10 Essential (primary) hypertension; D68.59 Other primary thrombophilia; R19.00 Intra-abdominal and pelvic swelling, mass and lump, unspecified site; D63.8 Anemia in other chronic diseases classified elsewhere; D72.829 Elevated white blood cell count, unspecified; I31.3 Pericardial effusion (noninflammatory); F03.90 Unspecified dementia, unspecified severity, without behavioral disturbance, psychotic disturbance, mood disturbance, and anxiety; I27.20 Pulmonary hypertension, unspecified; Z96.643 Presence of artificial hip joint, bilateral; Z96.659 Presence of unspecified artificial knee joint; Z79.01 Long term (current) use of anticoagulants; Z79.899 Other long term (current) drug therapy
CPT/HCPCS: 36415 ×3; 71045; 71250; 74176; 80053 ×3; 81001; 82533 ×2; 82550 ×3; 83735 ×3; 83874 ×2; 83880; 83935; 84100; 84300; 84443; 84484 ×3; 84540; 84550; 85025 ×3; 85610; 85730; 93005 ×3; 96361 ×2; 96365; 96366; 96375 ×2; 96376; 97039 ×2; 97116 ×2; 97161; 99285; G0378 ×49; G8978; G8979; G8980; G8981; G8982; G8983; J0696 ×2; J1940 ×2; J2405; J3475 ×2; J7030; 80048